=== PATIENT | female | born 1985 | race Two or more races ===

== ENCOUNTER 2017-04-30 06:38 | Emergency (ER) | END 2017-04-30 09:59 | disposition home or self-care (01) ==

== ENCOUNTER 2017-05-05 17:23 | Emergency (ER) | END 2017-05-05 23:11 | disposition home or self-care (01) ==

== ENCOUNTER 2017-05-11 21:12 | Emergency (ER) | END 2017-05-12 01:20 | disposition home or self-care (01) ==